=== PATIENT | male | born 1945 | race Caucasian/White ===

== ENCOUNTER 2020-04-09 07:56 | Inpatient (IN) | payer OTHER, MEDICARE ==
[~2020-04-09] VITALS: Ht 180.3 cm; Wt 100.8 kg
[~2020-04-09 07:56] MED LIST: ASPI81CH PO; Lisinopril2.5 MG PO; METO50ER PO; Norco 5-325 Ta1 EACH PO
[2020-04-09 08:05] LABS: Calcium, Ionized (POC) 1.15 mmol/L (1.10-1.46); Chloride (POC) 103 mmol/L (98-108); Creatinine (POC) 1.2 mg/dL (0.8-1.3); Glucose (ISTAT POC) 143 mg/dL (70-99); Hemoglobin (POC) 15.6 g/dL (13.5-17.5); Potassium (POC) 4.1 mmol/L (3.5-5.5); Sodium (POC) 136 mmol/L (135-148); Total CO2 (POC) 23 mmol/L (21-32)
[2020-04-09 08:16] LABS: Hematocrit 46.5 % (37.0-53.0); Hemoglobin 15.9 g/dL (13.5-17.5); Mean Corpuscular HGB 34.3 pg (26.0-34.0); Mean Corpuscular HGB Conc 34.2 g/dL (31.5-36.5); Mean Corpuscular Volume 100 fL (80-100); Mean Platelet Volume 10.7 fL (9.1-12.4); Platelet Count 168 K/mm3 (150-400); RDW Standard Deviation 48.2 fL (35.1-46.3); Red Blood Cell Count 4.64 M/mm3 (4.30-5.90); White Blood Cell Count 7.95 K/mm3 (4.00-11.30)
[2020-04-09 08:30] LABS: International Normalized Ratio 1.02; Prothrombin Time Results 10.9 Sec (9.7-11.5)
[2020-04-09 08:38] LABS: Anion Gap 5 mmol/L (6-16); Blood Urea Nitrogen 26 mg/dL (8-24); Bun/Creatinine Ratio 22.2 (12.0-20.0); CO2, Blood 26 mmol/L (21-32); CPK Creatine Kinase 419 U/L (39-308); Chloride, Blood 105 mmol/L (98-108); Cholesterol 156 mg/dL (50-200); Creatine Kinase MB 16.4 ng/mL (0.0-3.6); Creatine Kinase MB Index 3.9 (0.0-4.0); Creatinine, Blood 1.17 mg/dL (0.60-1.20); Glomerular Filtration Rate >60 (60-); Glucose, Blood 142 mg/dL (70-99); HDL Cholesterol 31 mg/dL (>39); LDL/HDL RATIO 3.4; Low Density Lipoprotein Chol 104 mg/dL (0-110); Magnesium, Blood 2.2 mg/dL (1.6-2.4); Potassium, Blood 4.2 mmol/L (3.5-5.5); Sodium, Blood 136 mmol/L (136-145); Triglycerides 103 mg/dL (30-160); Very Low Density Lipoprot Chol 20 mg/dL (6-32)
--- NOTE | 2020-04-09 12:40 | NUR ---
ARRIVAL TO ICU AT 1111 FROM DIRECTOR OF CLINICAL SERVICES. REPORT FROM CARLOS BELLE. RIGHT RADIAL ACCESS c TR BAND IN PLACE c 12 ML OF AIR. SITE VERIFIED c CARLOS. THREE STENTS PLACED TO LAD, MID X2, PROX X1. PT ARRIVES A&OX 4. ANSWERS QUESTIONS APPROPRIATELY. DENIES CHEST PAIN OR OTHER SYMPTOMS. REPORTS FEELING OF "INDIGESTION" MONDAY, RELIEVED c OTC MEDS. PT HAS HX OF SVT, REPORTS EPISODE THIS AM, TYPICALLY RESOLVES c VAGEL MANEUVERS. STATES THIS AM CONTINUED TO FEEL POORLY. LUNGS CLEAR, O2 SATS >94% ON RA. SPEAKING IN FULL SENTANCES. PT P/W/D. SR c RATE 90'S. BP STABLE. PT STANDS AT BEDSIDE TO USE URINAL, TACHYPNEIC c EXERTION, DENIES SOB. EKG DONE, ECHO IN PROGRESS, PLAN TO TAKE PT BACK TO DIRECTOR OF CLINICAL SERVICES SAT FOR ADDITIONAL STENTS. WILL CONTINUE TO MONITOR.
--- NOTE | 2020-04-09 13:32 | NUR ---
eCHOCARDIOGRAM USING 0.50ML OF dEFINITY CONTRAST PERFORMED.
--- NOTE | 2020-04-09 16:13 | NUR ---
Patient is sitting up in bed and alert. Patient tells me about his medical history up to present. Patient gets tearful in talking about a recent lay-off that also involves his housing. Patient talks about his family, his career and his pro. I listen empathically, normalize patient's experience and provide companionship and prayer. Patient responds well and shows signs of an elevated mood. Patient voices appreciation for the visit.
--- NOTE | 2020-04-09 17:21 | NUR ---
SHIFT SUMMARY ASSESSMENT UNCHANGED THIS SHIFT. PT DENIES CHEST PAIN OR OTHER SYMPTOMS. TR BAND DEFLATED AND REMOVED AT 1604. TEGADERM AND ARM BOARD IN PLACE. NO BLEEDING OR HEMATOMA NOTED. DENIES NUMBNESS OR TINGLING TO RIGHT EXTREMITY. HEPARIN STARTED POST ECHO FOR LV THROMBUS, INFUSING AT 15 UNITS/KG/HR. VSS. WILL CONTINUE TO MONITOR UNTIL REPORT TO ONCOMING NURSE.
--- NOTE | 2020-04-09 20:00 | NUR ---
PT RESTING IN BED. DENIES PAIN, CP, N/V AND DIZZINESS. GETS SOB WITH EXERTION BUT PT SAYS THIS IS BASELINE AND SPO2 NEVER DROPS. R RADIAL ACCESS SITE WITH CLEAR OCCLUSIVE DRESSING OVER IT. SITE IS STABLE. ARM BOARD IN PLACE. NO SIGN OF DISTRESS. CALL LIGHT IN REACH.
[2020-04-10 03:44] LABS: BASOPHILS ABSOLUTE AUTO 0.05 K/mm3 (0.00-0.23); BASOPHILS PERCENT AUTO 1 % (0-2); EOSINOPHILS ABSOLUTE AUTO 0.15 K/mm3 (0.00-0.68); EOSINOPHILS PERCENT AUTO 2 % (0-6); Hematocrit 39.7 % (37.0-53.0); Hemoglobin 13.7 g/dL (13.5-17.5); IMMATURE GRAN ABSOLUTE AUTO 0.06 K/mm3 (0.00-0.10); IMMATURE GRAN PERCENT AUTO 1 % (0-1); LYMPHOCYTES ABSOLUTE AUTO 1.33 K/mm3 (0.84-5.20); LYMPHOCYTES PERCENT AUTO 14 % (21-46); MONOCYTES ABSOLUTE AUTO 1.28 K/mm3 (0.16-1.47); MONOCYTES PERCENT AUTO 14 % (4-13); Mean Corpuscular HGB 34.3 pg (26.0-34.0); Mean Corpuscular HGB Conc 34.5 g/dL (31.5-36.5); Mean Corpuscular Volume 99 fL (80-100); Mean Platelet Volume 10.7 fL (9.1-12.4); NEUTROPHILS ABSOLUTE AUTO 6.34 K/mm3 (1.96-9.15); NEUTROPHILS PERCENT AUTO 69 % (41-73); Platelet Count 141 K/mm3 (150-400); RDW Coefficient Variation 12.8 % (11.7-14.2); RDW Standard Deviation 47.2 fL (35.1-46.3); White Blood Cell Count 9.21 K/mm3 (4.00-11.30)
[2020-04-10 04:03] LABS: Alanine Aminotransfer (ALT/SGP 172 U/L (12-78); Albumin, Blood 2.4 g/dL (3.4-5.0); Albumin/Globulin Ratio 0.6 (0.8-1.8); Alk Phos 42 U/L (50-136); Anion Gap 5 mmol/L (6-16); Aspartate Aminotrans (AST/SGOT 121 U/L (12-37); Bilirubin, Total 0.6 mg/dL (0.1-1.0); Blood Urea Nitrogen 18 mg/dL (8-24); Bun/Creatinine Ratio 17.6 (12.0-20.0); CHOL/HDL RATIO 4.8; CO2, Blood 25 mmol/L (21-32); Calcium, Blood 7.9 mg/dL (8.5-10.1); Chloride, Blood 105 mmol/L (98-108); Cholesterol 124 mg/dL (50-200); Creatinine, Blood 1.02 mg/dL (0.60-1.20); Globulin, Blood 3.8 g/dL (2.2-4.0); Glomerular Filtration Rate >60 (60-); Glucose, Blood 108 mg/dL (70-99); HDL Cholesterol 26 mg/dL (>39); Low Density Lipoprotein Chol 78 mg/dL (0-110); Sodium, Blood 135 mmol/L (136-145); Total Protein, Blood 6.2 g/dL (6.4-8.2); Triglycerides 98 mg/dL (30-160); Very Low Density Lipoprot Chol 19 mg/dL (6-32)
--- NOTE | 2020-04-10 06:18 | NUR ---
SUMMARY PT REMAINS ON HEPARIN GTT PER PHARMACY. R RADIAL ACCESS SITE STABLE WITH CLEAR OCCLUSIVE DRESSING IN PLACE. PT IS UP TO CHAIR THIS AM. DENIES PAIN, N/V, AND DIZZINESS. GETS SOB WITH EXERTION BUT SPO2 DOESN'T DROP. NO SIGN OF DISTRESS THIS AM. NO ACUTE EVENTS DURING THE NIGHT.
--- NOTE | 2020-04-10 13:41 | NUR ---
PT ARRIVED TO PCU 4 VIA WHEELCHAIR FROM ICU, REPORT WAS GIVEN BY RACHEL BELLE, PT HE IS A/OX3, PLEASANT AND COOPERATIVE WITH CARE, FOLLOWS COMMANDS WELL, DENIES PAIN AT THIS TIME. CURRENTLY ON A HEPERIN GTT. INSTRUCTED HIM TO CALL FOR ANY NEEDS OR CHANGES. CALL LIGHT IN REACH.
--- NOTE | 2020-04-10 14:30 | NUR ---
TRANSFER OF CARE REPORT CALLED TO GUME DUNAWAY RN ON PCU. HEPARING GTT CONTINUE TO INFUSES AT 18UNITS PER PHARMACY DOSING. BELONGINGS GATHERED AND TRANSFERED WITH PT. PT ESCORTED TO PCU 4 VIA WHEELCHAIR BY RN.
--- NOTE | 2020-04-10 15:47 | NUR ---
PT GOT UP TO THE BR, WHEN HE GOT BACK TO THE BED HE REPORTS 2-[address] NOLASCO WAS NOTIFIED, HE SAID TO JUST KEEP DOING WHAT WERE DOING. V.S. STABLE. STATES HE'S OK, PAIN DOWN TO A 2. CALL LIGHT IN REACH.
--- NOTE | 2020-04-10 19:15 | NUR ---
PT BECAME SOB, ASKED HIM TO STAY IN BED, DR. NOLASCO CAME TO SEE HIM, PUT HIM ON TYLENOL, WILL DO AN ANGIO IN AM, PLACED HIM ON 2 LITERS O2 FOR COMFORT, RESTING QUIELTY, REPORTS PAIN CAME DOWN TO A 2 FROM A 4, AND IS ABLE TO REST. NO FURTHER COMPLAINTS. CALL LIGHT IN REACH.
--- NOTE | 2020-04-10 19:55 | NUR ---
ASSUMED CARE Report recieved from BARBRA Booth and care assumed at 1900. Pt laying in bed, reporting chest pain 2/10 that is worsened with inspiration. heprin gtt infusing at 19u/kg/hr at shift change. Pt is alert and oriented, VS show SBP 91, pt not dizzy or lightheaded, mentation intact, conversing appropriately. Will continue to monitor BP closely this shift. community service manager aware of BP. No BP medications ordered or given this shift. R Radial access site covered with tegaderm, prexisting marked outline for hematoma, no change. arm board in place and pt compliant with r arm restriction. See shift assessment for detailed systems assessment.
[2020-04-11 01:02] LABS: BASOPHILS ABSOLUTE AUTO 0.03 K/mm3 (0.00-0.23); BASOPHILS PERCENT AUTO 0 % (0-2); EOSINOPHILS ABSOLUTE AUTO 0.04 K/mm3 (0.00-0.68); EOSINOPHILS PERCENT AUTO 0 % (0-6); Hematocrit 36.9 % (37.0-53.0); IMMATURE GRAN ABSOLUTE AUTO 0.07 K/mm3 (0.00-0.10); IMMATURE GRAN PERCENT AUTO 1 % (0-1); LYMPHOCYTES PERCENT AUTO 7 % (21-46); MONOCYTES ABSOLUTE AUTO 1.34 K/mm3 (0.16-1.47); MONOCYTES PERCENT AUTO 10 % (4-13); Mean Corpuscular HGB 34.4 pg (26.0-34.0); Mean Corpuscular HGB Conc 35.2 g/dL (31.5-36.5); Mean Corpuscular Volume 98 fL (80-100); Mean Platelet Volume 10.3 fL (9.1-12.4); NEUTROPHILS PERCENT AUTO 82 % (41-73); Platelet Count 165 K/mm3 (150-400); RDW Coefficient Variation 12.7 % (11.7-14.2); RDW Standard Deviation 45.5 fL (35.1-46.3); Red Blood Cell Count 3.78 M/mm3 (4.30-5.90); White Blood Cell Count 13.38 K/mm3 (4.00-11.30)
[2020-04-11 01:18] LABS: Bun/Creatinine Ratio 14.4 (12.0-20.0); Calcium, Blood 7.8 mg/dL (8.5-10.1); Creatinine, Blood 1.46 mg/dL (0.60-1.20); Potassium, Blood 4.3 mmol/L (3.5-5.5)
--- NOTE | 2020-04-11 06:28 | NUR ---
Shift Summary Pt with mild hypotension this shift, MAP remains >65. service desk technician aware of BP. Pt with no changes to mentation, denies dizziness or lightheaded. No changes to HR or rhythm. Pt complaining of consistant CP of 2/10, worsens with inspiration. Tylenol given q6 which is effective for pt. Pt able to express needs with call light, able to take all medications whole with water. Heprin gtt infusing at 20 u/kg/hr per orders. R radial access site unchanged from initial assessment. NPO since midnight. Plan for second angiogram today. pt aware of plan. no acute changes from initial shift assessment. No acute concerns to note. Will continue to monitor.
--- NOTE | 2020-04-11 07:41 | NUR ---
The pt has been having blood pressures lower than 90 mmHg systolic overnight. This morning his blood pressure remains low. His creatinine is noted to be greater than 1.0. The pt appears to be asymptomatic, talking pleasantly in the room. Dr. Ling was called, and notified of the RNs concern. Angiogram to be cancelled this morning and the doctor will be in to see the pt soon. Nursing photographic laboratory supervisor notified.
--- NOTE | 2020-04-11 08:01 | NUR ---
pt laying in bed awake a/ox3, pleasant and cooperative with care, follows commands well, denies any complaints of pain, sob or dizziness this am, reports he slept well last night and is comfortable, lungs are clear t/o, resp even and unlabored, no cough noted, hrr, tele in place running sr per monitor, see strip, no edema noted, iv to r and l ac's, both are patent, heperin infusing in right side as ordered, btx4, abd flat soft nontender, voids without diff, skin c/w/d, maew, helen, call light in reach. b/p in the 's which has been all night, call to Dr. Covarrubias to notify him of this, and labs. angio is cancelled for today. will hold b/p meds.
--- NOTE | 2020-04-11 11:58 | NUR ---
PT B/P OVER 100 SYSTOLIC, METOPROLOL GIVEN DR. NOLASCO INSTRUCTED, PT DOING WELL, NO COMPLAINTS, DID NOT WANT TO EAT MUCH OF LUNCH, STATES HE'S NOT HUNGRY, BUT FEELING BETTER OVERAL. CALL LIGHT IN REACH.
--- NOTE | 2020-04-11 19:31 | NUR ---
PT HAS HAD AN UNEVENTFUL DAY. NO ACUTE CHANGES THIS SHIFT. B/P IS WNL SINCE FLUIDS WERE STARTED. NO CHEST PAIN ALL DAY. BREATHING IS UNLABORED. CALL LIGHT IN REACH.
--- NOTE | 2020-04-11 22:46 | NUR ---
CARE ASSUMED REPORT RECEIVED, CARE ASSUMED AT 1900 FROM BARBRA AMEZQUITA. PT ALERT, ORIENTED. DENIES PAIN OR DISCOMFORT. SOB WITH USE OF URINAL AT BEDSIDE. HEPARIN GTT INFUSING PER ORDERS. PT DENIES CHEST PAIN. PT AGREEABLE TO CALL FOR NEEDS, CALL LIGHT IN REACH.
[2020-04-12 04:17] LABS: Anion Gap 8 mmol/L (6-16); Blood Urea Nitrogen 19 mg/dL (8-24); Bun/Creatinine Ratio 16.5 (12.0-20.0); CO2, Blood 23 mmol/L (21-32); Calcium, Blood 7.8 mg/dL (8.5-10.1); Chloride, Blood 105 mmol/L (98-108); Creatinine, Blood 1.15 mg/dL (0.60-1.20); Glomerular Filtration Rate >60 (60-); Glucose, Blood 103 mg/dL (70-99); Potassium, Blood 3.8 mmol/L (3.5-5.5); Sodium, Blood 136 mmol/L (136-145)
--- NOTE | 2020-04-12 06:20 | NUR ---
SUMMARY VITALS STABLE THROUGHOUT SHIFT. PT HAS DENIED CHEST PAIN. CONTINUES TO BE SHORT OF BREATH WITH EXERTION. INSISTENT ON STANDING UP TO USE URINAL REGARDLESS OF EDUCATION. HEPARIN GTT AND FLUIDS CONTINUE PER ORDERS. GOOD URINE OUTPUT. KIDNEY FUNCTION IMPROVING ON LABS. NPO SINCE MIDNIGHT. PT HOPEFUL TO GO TO MANAGEMENT AND BUDGET ANALYST TODAY. PT CALLING APPROPRIATELY FOR NEEDS THROUGHOUT SHIFT.
--- NOTE | 2020-04-12 09:56 | NUR ---
HEPARIN GTT TO CONT AT SAME RATE
--- NOTE | 2020-04-12 12:25 | NUR ---
pt arrived back to room pcu 4 from geochemical laboratory technician pt is s/p 1 stent placement via r wrist to central artery pt stated he has cp 11/29 at this time with sob pt has band on the wrist no hematoma noted will cont to monitor
--- NOTE | 2020-04-12 12:39 | NUR ---
pt eating lunch lab at bedside
--- NOTE | 2020-04-12 12:52 | NUR ---
pt done eating lunch
--- NOTE | 2020-04-12 13:00 | NUR ---
dr landa by to see pt plan for poss discharge dina
--- NOTE | 2020-04-12 13:42 | NUR ---
talked with pharmacy re ptt result to hold heparin gtt until 1440 then restart at same rate 35.2 ml/hr
--- NOTE | 2020-04-12 14:40 | NUR ---
restarted heprin gtt at 35.2 mlhr also started to release the air in band on the wrist by 2 ml
--- NOTE | 2020-04-12 16:06 | NUR ---
pt watching tv lab at bedside for pt/inr
[2020-04-12 16:28] LABS: International Normalized Ratio 1.16; Prothrombin Time Results 12.3 Sec (9.7-11.5)
--- NOTE | 2020-04-12 17:28 | NUR ---
removed wrist band dressing placed no drainage no hematoma noted pt to start on 5 mg po coumadin
--- NOTE | 2020-04-12 20:23 | NUR ---
ASSUMED CARE Report recieved from BARBRA Stahl and care assumed at 1900. clinical applications specialist Zheng Guerrero also caring for pt under supervision of this RN. VSS, SBP 97 at time of arrival. Heprin gtt infusing at 35.2 ml/hr and 20 u/kg/hr; rate verified with offgoing RN. IVfluids infusing at 75 mls/hr at time of assumption of care. Pt breathing is even and unlabored, endorses a "1.5/10" for pain and comments "it's not really a pain but more of discomfort." No changes to telemetry. Pt is fully alert and oriented, endorses fatigue but remains alert during entire assessment and conversation. R radial access site visualized with offgoing RN and site is WNL. Tegaderm inplace and arm board. Pt verbalizes understanding of R arm restriction. No acute concerns to note at start of shift.
--- NOTE | 2020-04-12 21:37 | NUR ---
No rate change for heprin gtt per orders. maintaining rate at 20 u/kg/hr.
[2020-04-13 04:23] LABS: Anion Gap 9 mmol/L (6-16); Blood Urea Nitrogen 17 mg/dL (8-24); CO2, Blood 24 mmol/L (21-32); Calcium, Blood 7.9 mg/dL (8.5-10.1); Chloride, Blood 105 mmol/L (98-108); Creatinine, Blood 1.06 mg/dL (0.60-1.20); Glomerular Filtration Rate >60 (60-); Glucose, Blood 103 mg/dL (70-99); Potassium, Blood 3.6 mmol/L (3.5-5.5); Sodium, Blood 138 mmol/L (136-145)
[2020-04-13 04:24] LABS: International Normalized Ratio 1.11; Prothrombin Time Results 11.8 Sec (9.7-11.5)
--- NOTE | 2020-04-13 06:18 | NUR ---
SHIFT SUMMARY PT APPEARED COMFORTABLE THROUGHTOUT SHIFT. HIS VITAL SIGNS REMAINED STABLE, WITH NO OBVIOUS ABNORMAL DEVIATIONS. PT REPORTED IMPROVED CHEST PAIN FROM A 2 TO LESS THAN A 1, STATING "IT'S NOT A PAIN, JUST MORE OF AN ACHE." PT WAS EDUCATED ABOUT VASOSPASMS POST PCI AND EXPRESSED UNDERSTANDING. HEPARIN IS INFUSING AT 20 u/kg/hr AND NS AT 75 ML/HR, PER ORDERS. RIGHT RADIAL ACCESS SITE REMAINED WITHIN NORMAL LIMITS; DRESSING REMAINED CLEAN, DRY AND INTACT. PT WAS COOPERATIVE. NO CHANGES IN MENTATION WERE NOTED. HE DENIED SOB, DIZZINESS, VISION CHANGES, TINGLING/NUMBNESS, OR ABNORMAL BLEEDING. HE HAS BEEN PRODUCING URINE WITHOUT DIFFICULTY. NO ACUTE CHANGES FROM INITIAL ASSESSMENT. NO ACUTE CONCERNS AT THIS TIME.
--- NOTE | 2020-04-13 07:30 | NUR ---
AM ASSESSMENT: Pt resting in bed. States that he is having intermitant chest pain on the R side of his chest. Rates it a 1/10. Will treat with tylenol per orders. LS clear. HR reg. BT hyperactive. Pt on heprin gtt and IVF per orders. BP slightly hypotensive. Will monitor and reassess pain and BP. Denies other needs.
--- NOTE | 2020-04-13 11:32 | NUR ---
Report given to BARBRA Amin. Pt transfered via w/c to medical floor room 330. Care transfered. Stable at that time. Prior to transfer Pt was given verbal lovenox teaching with injection. Denied questions at that time.
--- NOTE | 2020-04-13 11:56 | NUR ---
PT TRANSFERED. PT ORIENTED TO ROOM. CALL LIGHT IN REACH. URINAL & WATER AT BEDSIDE. PT STATES NO FURTHER NEEDS AT THIS TIME.
--- NOTE | 2020-04-13 12:03 | NUR ---
Patient is sitting up in bed and alert. Patient tells me about his latest surgery, about his housing issues and the changes there and about his friends and how they are stepping up to help him. Patient is still tearful about being let go from his job. He explains that he is 75 yrs old and has never be fired from a job in his life. I listen empathically, explore sources of meaning and value and provide companionship and prayer. Patient responds well and shows signs of an elevated mood. I will continue to reamain available to patient and family.
--- NOTE | 2020-04-13 16:27 | NUR ---
SHIFT SUMMARY PT TRANSFERED FROM PCU EARLIER IN THE SHIFT. PT RESTING IN BED COMFORTABLY. DENIES PAIN AT THIS TIME. VSS. NO CHANGES IN ASSESSMENT AT THIS TIME. PT R WRIST PUNCTURE SITE INTACT. PT DENIES PAIN THIS AFTERNOON. WILL CONTINUE TO MONITOR UNTIL TURNOVER IS COMPLETE.
--- NOTE | 2020-04-14 02:58 | NUR ---
SHIFT SUMMARY PT CAME FROM PCU YESTERDAY POST STEMI. REMAINS ON MED TELE - SINUS RHYTHM. SLEEP STUDY IN PROGRESS, RESTING QUIETLY AT PRESENT BUT HAS BEEN AWAKE AT INTERVALS. NO NOTED S/S OF ACUTE PHYSICAL DISTRESS. CALL LIGHT IN REACH.
[2020-04-14 05:42] LABS: International Normalized Ratio 1.25; Prothrombin Time Results 13.2 Sec (9.7-11.5)
[2020-04-14 07:18] LABS: Anion Gap 9 mmol/L (6-16); Blood Urea Nitrogen 18 mg/dL (8-24); Bun/Creatinine Ratio 15.4 (12.0-20.0); CO2, Blood 25 mmol/L (21-32); Calcium, Blood 8.3 mg/dL (8.5-10.1); Chloride, Blood 103 mmol/L (98-108); Creatinine, Blood 1.17 mg/dL (0.60-1.20); Glomerular Filtration Rate >60 (60-); Glucose, Blood 94 mg/dL (70-99); Potassium, Blood 3.5 mmol/L (3.5-5.5); Sodium, Blood 137 mmol/L (136-145)
--- NOTE | 2020-04-14 11:36 | NUR ---
WARFARIN TABLETS. THIS RN WENT TO PULL NEEDED WARFARIN FOR PT AND COUNTED THE TABLETS, THEN INPUT THE COUNT IN THE PYXIS, THEN ONLY PULLED ONE TABLET OUT AND CLOSED THE DRAWER. PHARMACY NOTIFIED OF THIS ACTION. SECOND TAB NEEDED SENT STRAIGHT FROM PHARMACY. ASSEMBLER EQUIPMENT AWARE OF WHICH PYXIS THIS OCCURED IN TO FIX COUNT.
[2020-04-14] MEDS ORDERED: ASPI81CH PO (11:57)
[2020-04-14] MEDS ORDERED: ATOR40TA PO (11:57)
[2020-04-14] MEDS ORDERED: CLOP75 PO (11:58)
[2020-04-14] MEDS ORDERED: ENOXAPARIN100 MG/1 M SC (12:02)
[2020-04-14] MEDS ORDERED: FURO40 PO (12:02)
[2020-04-14] MEDS ORDERED: WARF10 PO (12:03)
--- NOTE | 2020-04-14 14:22 | NUR ---
PT DISCHARGED PT DISCHARGED IN STABLE CONDITION. PT EDUCATED ON DC INSTRUCTIONS, NEW MEDS, AND FOLLOW UP APPOINTMENTS. SCRIPT FOR BLOOD DRAW GIVEN TO PT. PT DENIED NEED FOR FURTHER INSTRUCTION AT THIS TIME. PT R RADIAL PUNCTURE SITE INTACT. PT EDUCATED ON LIGHT WEIGHT FOR 1 WEEK. NO OTHER ACUTE CHANGES IN ASSESSMENT AT THIS TIME. PT WHEELED OUT BY AIDE AND DRIVEN HOME BY .
== END 2020-04-14 14:15 | disposition home or self-care (01) | DRG 246 ==
LOC: ER 07:56 → PCU 08:10 → ICUE 08:10 → PCU 04-10 14:39 → MEDS 04-13 11:18 → ENPENDDIS 04-14 11:00 → MEDS 04-14 14:15
PROVIDERS: Emergency Medicine; ADMIT Internal Medicine Interventional Cardiology
PROC: 4A023N7 Measurement of Cardiac Sampling and Pressure, Left Heart, Percutaneous Approach (ICD-10-PCS; principal; 2020-04-09)
PROC: 02C03ZZ Extirpation of Matter from Coronary Artery, One Artery, Percutaneous Approach (ICD-10-PCS; 2020-04-09)
PROC: 027036Z Dilation of Coronary Artery, One Artery with Three Drug-eluting Intraluminal Devices, Percutaneous Approach (ICD-10-PCS; 2020-04-09)
PROC: B2111ZZ Fluoroscopy of Multiple Coronary Arteries using Low Osmolar Contrast (ICD-10-PCS; 2020-04-09)
PROC: B241ZZ3 Ultrasonography of Multiple Coronary Arteries, Intravascular (ICD-10-PCS; 2020-04-09)
PROC: 027034Z Dilation of Coronary Artery, One Artery with Drug-eluting Intraluminal Device, Percutaneous Approach (ICD-10-PCS; 2020-04-12)
DX: I21.02 ST elevation (STEMI) myocardial infarction involving left anterior descending coronary artery (principal); I23.6 Thrombosis of atrium, auricular appendage, and ventricle as current complications following acute myocardial infarction; I24.1 Dressler's syndrome; I50.30 Unspecified diastolic (congestive) heart failure; Z87.891 Personal history of nicotine dependence; N14.1 Nephropathy induced by other drugs, medicaments and biological substances; I95.9 Hypotension, unspecified; I11.0 Hypertensive heart disease with heart failure; T50.8X5A Adverse effect of diagnostic agents, initial encounter; Y92.239 Unspecified place in hospital as the place of occurrence of the external cause
CPT/HCPCS: 36415; 76937; 80047; 80048; 80053; 80061; 82550; 82553; 83735; 84484; 85014; 85025; 85027; 85347; 85610; 85730; 86850; 86900; 86901; 92973; 92978; 93005; 93010; 93458; 94762; 99152; 99153; 99285-25; A9270-GY; C1725; C1753; C1757; C1769; C1874; C1887; C1894; C8929; C9600; C9606; J1644; J1650; J1940; J2250; J3010; J3246; J7030; Q9957; Q9967

== ENCOUNTER 2020-04-23 23:34 | Inpatient (IN) | payer OTHER, MEDICARE ==
[~2020-04-23] VITALS: Ht 180.3 cm; Wt 97.9 kg
[~2020-04-23 23:34] MED LIST changes: +ATOR40TA PO; +CLOP75 PO; +ENOXAPARIN100 MG/1 M SC; +FURO40 PO; +WARF10 PO
[2020-04-23 23:53] LABS: BASOPHILS ABSOLUTE AUTO 0.06 K/mm3 (0.00-0.23); BASOPHILS PERCENT AUTO 0 % (0-2); EOSINOPHILS ABSOLUTE AUTO 0.06 K/mm3 (0.00-0.68); EOSINOPHILS PERCENT AUTO 0 % (0-6); Hematocrit 43.3 % (37.0-53.0); Hemoglobin 14.6 g/dL (13.5-17.5); IMMATURE GRAN ABSOLUTE AUTO 0.12 K/mm3 (0.00-0.10); IMMATURE GRAN PERCENT AUTO 1 % (0-1); LYMPHOCYTES ABSOLUTE AUTO 1.66 K/mm3 (0.84-5.20); LYMPHOCYTES PERCENT AUTO 8 % (21-46); MONOCYTES ABSOLUTE AUTO 2.22 K/mm3 (0.16-1.47); MONOCYTES PERCENT AUTO 11 % (4-13); Mean Corpuscular HGB 34.6 pg (26.0-34.0); Mean Corpuscular HGB Conc 33.7 g/dL (31.5-36.5); Mean Platelet Volume 10.2 fL (9.1-12.4); NEUTROPHILS ABSOLUTE AUTO 16.56 K/mm3 (1.96-9.15); NEUTROPHILS PERCENT AUTO 80 % (41-73); Platelet Count 364 K/mm3 (150-400); RDW Coefficient Variation 13.8 % (11.7-14.2); RDW Standard Deviation 52.5 fL (35.1-46.3); Red Blood Cell Count 4.22 M/mm3 (4.30-5.90); White Blood Cell Count 20.68 K/mm3 (4.00-11.30)
[2020-04-23 23:54] LABS: Mean Corpuscular Volume 103 fL (80-100)
[2020-04-24 00:14] LABS: Albumin, Blood 2.9 g/dL (3.4-5.0); Albumin/Globulin Ratio 0.6 (0.8-1.8); Bilirubin, Total 1.1 mg/dL (0.1-1.0); Bun/Creatinine Ratio 34.1 (12.0-20.0); Calcium, Blood 8.6 mg/dL (8.5-10.1); Creatinine, Blood 1.64 mg/dL (0.60-1.20); Globulin, Blood 4.5 g/dL (2.2-4.0); Potassium, Blood 4.4 mmol/L (3.5-5.5); Total Protein, Blood 7.4 g/dL (6.4-8.2); Troponin I 0.077 ng/mL (0.000-0.040)
[2020-04-24 02:10] LABS: International Normalized Ratio 2.86; Prothrombin Time Results 28.8 Sec (9.7-11.5)
--- NOTE | 2020-04-24 02:27 | NUR ---
REPORT RECIEVED FROM BARBRA CHRIS. AWAITING PT ARRIVAL TO PCU 4 AT THIS TIME
[2020-04-24 06:12] LABS: BASOPHILS ABSOLUTE AUTO 0.05 K/mm3 (0.00-0.23); BASOPHILS PERCENT AUTO 0 % (0-2); EOSINOPHILS ABSOLUTE AUTO 0.05 K/mm3 (0.00-0.68); EOSINOPHILS PERCENT AUTO 0 % (0-6); Hematocrit 40.5 % (37.0-53.0); Hemoglobin 13.5 g/dL (13.5-17.5); IMMATURE GRAN PERCENT AUTO 1 % (0-1); LYMPHOCYTES ABSOLUTE AUTO 1.28 K/mm3 (0.84-5.20); LYMPHOCYTES PERCENT AUTO 9 % (21-46); MONOCYTES ABSOLUTE AUTO 1.47 K/mm3 (0.16-1.47); MONOCYTES PERCENT AUTO 10 % (4-13); Mean Corpuscular HGB Conc 33.3 g/dL (31.5-36.5); Mean Corpuscular Volume 102 fL (80-100); Mean Platelet Volume 10.2 fL (9.1-12.4); NEUTROPHILS ABSOLUTE AUTO 11.32 K/mm3 (1.96-9.15); NEUTROPHILS PERCENT AUTO 79 % (41-73); Platelet Count 234 K/mm3 (150-400); RDW Coefficient Variation 13.8 % (11.7-14.2); RDW Standard Deviation 52.2 fL (35.1-46.3); Red Blood Cell Count 3.97 M/mm3 (4.30-5.90); White Blood Cell Count 14.27 K/mm3 (4.00-11.30)
[2020-04-24 06:34] LABS: Bun/Creatinine Ratio 36.8 (12.0-20.0); Calcium, Blood 8.1 mg/dL (8.5-10.1); Creatinine, Blood 1.55 mg/dL (0.60-1.20); Potassium, Blood 4.7 mmol/L (3.5-5.5); Troponin I 0.076 ng/mL (0.000-0.040)
[2020-04-24 06:43] LABS: International Normalized Ratio 3.08; Prothrombin Time Results 30.9 Sec (9.7-11.5)
[2020-04-24 07:15] LABS: Adenovirus Not Detected (NOT DETECT); Bordetella pertussis Not Detected (NOT DETECT); Chlamydophila pneumoniae Not Detected (NOT DETECT); Coronavirus 229E Not Detected (NOT DETECT); Coronavirus HKU1 Not Detected (NOT DETECT); Coronavirus NL63 Not Detected (NOT DETECT); Coronavirus OC43 Not Detected (NOT DETECT); Human Metapneumovirus Not Detected (NOT DETECT); Human Rhinovirus/Enterovirus Not Detected (NOT DETECT); Influenza A/2009-H1 Not Detected (NOT DETECT); Influenza A/H1 Not Detected (NOT DETECT); Influenza A/H3 Not Detected (NOT DETECT); Influenza B Not Detected (NOT DETECT); Mycoplasma pneumoniae Not Detected (NOT DETECT); Parainfluenza Virus 1 Not Detected (NOT DETECT); Parainfluenza Virus 2 Not Detected (NOT DETECT); Parainfluenza Virus 3 Not Detected (NOT DETECT); Parainfluenza Virus 4 Not Detected (NOT DETECT); Respiratory Syncytial Virus Not Detected (NOT DETECT)
--- NOTE | 2020-04-24 07:42 | NUR ---
SHIFT SUMMARY Pt admitted to PCU this shift for PNA. He was recently discharged from [facility] on 04/14 for STEMI with stents. currently on 2L NC, VSS. Total of 1.5L LR fluid bolus given per orders. IVF infusing 100ml/hr at this time. Pt is fully alert and oriented x4; able to provide all information for admission and conversing appropriately with staff. Makes needs known with call light. See admission assessment for detailed systems assessment - no acute changes. No active CP, no increased SOB, pt able to speak in full sentences without dyspnea. Handoff given to day RN who assumes care.
--- NOTE | 2020-04-24 08:40 | NUR ---
PT SITTING UP IN BED WATCHING TV. A&Ox4. CRHISTY. LUNG SOUNDS ARE DIMINISHED AND COARSE ON THE LEFT SIDE. RIGHT SIDED LUNG SOUNDS ARE CLEAR AND SLIGHTLY DIMINISHED IN THE BASES. DENIES SOB AT THIS TIME. PT ON TELE. SINUS RHYTHMN AT A RATE OF 95. REPORTS L SIDED CP WITH MOVEMENT AND WHEN TAKING A DEEP BREATH. PULSES STRONG. BOWEL TONES AUSCULTATED IN ALL 4 QUADRANTS. DENIES ABD PN. SKIN IS WARM AND PINK. IV IN RAC PATENT AND INFUSING CURRENTLY. PT NOW EATING LUNCH. BED IN LOW POSITION, RAILS UP, AND CALL LIGHT W/IN REACH.
--- NOTE | 2020-04-24 13:40 | NUR ---
REPORT GIVEN TO BREN BELLE. PT INFORMED OF TRANSFER. PT TO MEDICAL FLOOR VIA HOSPITAL BED BY PCT.
--- NOTE | 2020-04-24 15:12 | NUR ---
Per RN request, I met with Mr. Cadet to offer gentle savings counselor. He was tearful and extremely worried about recent life changes. He welcomed spiritual direction and prayer. He appeared calm by conclusion of visit. Counting Machine Operator services will remain available.
--- NOTE | 2020-04-24 19:29 | NUR ---
resting, lr infusing with no s/sx of infection or infiltration, call light in reach, breathing easy, o2 level above 90, no complaint of sob except if he moved arms, bsr shared with pt and nurse
--- NOTE | 2020-04-25 04:37 | NUR ---
SHIFT SUMMARY PT HAS HAD NO ACUTE CHANGES THIS SHIFT, SLEPT T/O MOST OF NIGHT, MEDICATED 1X FOR PLEURITIC CP (L SIDE), NO OTHER C/O ANY KIND, PT SLEEPING AT THIS TIME, CALL LIGHT IN REACH, WILL CONT TO MONITOR UNTIL REPORT GIVEN TO DAY RN.
[2020-04-25 05:18] LABS: BASOPHILS ABSOLUTE AUTO 0.04 K/mm3 (0.00-0.23); BASOPHILS PERCENT AUTO 0 % (0-2); EOSINOPHILS ABSOLUTE AUTO 0.09 K/mm3 (0.00-0.68); EOSINOPHILS PERCENT AUTO 1 % (0-6); Hematocrit 37.4 % (37.0-53.0); Hemoglobin 12.5 g/dL (13.5-17.5); IMMATURE GRAN ABSOLUTE AUTO 0.06 K/mm3 (0.00-0.10); IMMATURE GRAN PERCENT AUTO 1 % (0-1); LYMPHOCYTES ABSOLUTE AUTO 0.86 K/mm3 (0.84-5.20); LYMPHOCYTES PERCENT AUTO 8 % (21-46); MONOCYTES ABSOLUTE AUTO 1.18 K/mm3 (0.16-1.47); MONOCYTES PERCENT AUTO 11 % (4-13); Mean Corpuscular HGB 33.8 pg (26.0-34.0); Mean Corpuscular HGB Conc 33.4 g/dL (31.5-36.5); Mean Corpuscular Volume 101 fL (80-100); Mean Platelet Volume 10.4 fL (9.1-12.4); NEUTROPHILS PERCENT AUTO 80 % (41-73); Platelet Count 213 K/mm3 (150-400); RDW Coefficient Variation 13.8 % (11.7-14.2); RDW Standard Deviation 51.4 fL (35.1-46.3); White Blood Cell Count 11.23 K/mm3 (4.00-11.30)
[2020-04-25 05:32] LABS: International Normalized Ratio 3.75; Prothrombin Time Results 37.2 Sec (9.7-11.5)
[2020-04-25 05:52] LABS: Anion Gap 6 mmol/L (6-16); Blood Urea Nitrogen 34 mg/dL (8-24); Bun/Creatinine Ratio 28.1 (12.0-20.0); CO2, Blood 25 mmol/L (21-32); Calcium, Blood 8.1 mg/dL (8.5-10.1); Chloride, Blood 106 mmol/L (98-108); Creatinine, Blood 1.21 mg/dL (0.60-1.20); Glomerular Filtration Rate >60 (60-); Glucose, Blood 108 mg/dL (70-99); Potassium, Blood 4.5 mmol/L (3.5-5.5); Sodium, Blood 137 mmol/L (136-145)
--- NOTE | 2020-04-25 18:26 | NUR ---
SHIFT SUMMARY COVID-19 TEST RETURNED NOT DETECTED. PT DID HAVE CHEST PAIN THIS MORNING THAT RESOLVED WITH TYLENOL. INSTRUCTED ON USE OF FLUTTER VALVE AND IS. HAS BEEN SEEN USING SEVERAL TIMES AND REPORTS HIS CHEST PAIN HAS ALSO IMPROVED SINCE HE STARTED USING THE RESPIRATORY TOOLS. REPORTS HE HAS A POOR APPETITE BUT STATED HE DID EAT MORE FOR DINNER.
--- NOTE | 2020-04-26 04:28 | NUR ---
SHIFT SUMMARY PT HAS HAD NO ACUTE CHANGES THIS SHIFT, NO C/O OF ANY KIND, REPORTS CP HAS IMPROVED & PT HAS BEEN USING FLUTTER & IS THIS EVENING, PT SLEPT T/O THE NIGHT & AT THIS TIME, CALL LIGHT IN REACH, WILL CONT TO MONITOR UNTIL REPORT GIVEN TO DAY RN.
[2020-04-26 04:46] LABS: BASOPHILS ABSOLUTE AUTO 0.04 K/mm3 (0.00-0.23); BASOPHILS PERCENT AUTO 0 % (0-2); EOSINOPHILS ABSOLUTE AUTO 0.12 K/mm3 (0.00-0.68); EOSINOPHILS PERCENT AUTO 1 % (0-6); Hematocrit 36.1 % (37.0-53.0); Hemoglobin 12.1 g/dL (13.5-17.5); IMMATURE GRAN ABSOLUTE AUTO 0.03 K/mm3 (0.00-0.10); IMMATURE GRAN PERCENT AUTO 0 % (0-1); LYMPHOCYTES ABSOLUTE AUTO 0.81 K/mm3 (0.84-5.20); LYMPHOCYTES PERCENT AUTO 9 % (21-46); MONOCYTES ABSOLUTE AUTO 1.02 K/mm3 (0.16-1.47); MONOCYTES PERCENT AUTO 11 % (4-13); Mean Corpuscular HGB 33.6 pg (26.0-34.0); Mean Corpuscular HGB Conc 33.5 g/dL (31.5-36.5); Mean Corpuscular Volume 100 fL (80-100); Mean Platelet Volume 10.1 fL (9.1-12.4); NEUTROPHILS ABSOLUTE AUTO 7.01 K/mm3 (1.96-9.15); NEUTROPHILS PERCENT AUTO 78 % (41-73); Platelet Count 199 K/mm3 (150-400); RDW Coefficient Variation 13.5 % (11.7-14.2); RDW Standard Deviation 49.7 fL (35.1-46.3); White Blood Cell Count 9.03 K/mm3 (4.00-11.30)
[2020-04-26 05:01] LABS: International Normalized Ratio 3.05; Prothrombin Time Results 30.6 Sec (9.7-11.5)
[2020-04-26 05:05] LABS: Anion Gap 5 mmol/L (6-16); Blood Urea Nitrogen 23 mg/dL (8-24); Bun/Creatinine Ratio 21.5 (12.0-20.0); CO2, Blood 24 mmol/L (21-32); Calcium, Blood 8.2 mg/dL (8.5-10.1); Chloride, Blood 108 mmol/L (98-108); Creatinine, Blood 1.07 mg/dL (0.60-1.20); Glomerular Filtration Rate >60 (60-); Glucose, Blood 92 mg/dL (70-99); Magnesium, Blood 2.5 mg/dL (1.6-2.4); Potassium, Blood 4.1 mmol/L (3.5-5.5); Sodium, Blood 137 mmol/L (136-145)
--- NOTE | 2020-04-26 18:18 | NUR ---
SHIFT SUMMARY A&OX4. PT IS SBA TO BATHROOM FOR BM AND USES URINAL AT BEDSIDE. PT DID NOT USE CALL LIGHT. PT DID NOT REPORT ANY EPSOIDS OF PAIN & DENIES N/V. PT DECLINED DINNER AND HAD AN ENSURE INSTEAD. PT HAS NONPRODUCTIVE COUGH. SPUTUM SAMPLE STILL NEEDED.
--- NOTE | 2020-04-27 04:56 | NUR ---
SHIFT SUMMARY PT HAS HAD NO ACUTE CHANGES THIS SHIFT, DR NOLASCO AT BEDSIDE @ 1999, NEW ORDERS REC, PT SLEPT T/O THE NIGHT, NO C/O ANY KIND, CALL LIGHT IN REACH, WILL CONT TO MONITOR UNTIL REPORT GIVEN TO DAY RN.
[2020-04-27 05:54] LABS: International Normalized Ratio 1.95; Prothrombin Time Results 20.1 Sec (9.7-11.5)
--- NOTE | 2020-04-27 15:46 | NUR ---
1545 REPORT GIVEN TO PATTI SNYDER RN AT [facility]. AWAITING TRANSPORT SOON.
--- NOTE | 2020-04-27 17:51 | NUR ---
SHIFT SUMMARY. 1555 PT ABIGAIL TRANSFERED TO [facility] VIA GURNEY TRANSPORT. PT BELONGS WITH PT, INCLUDING HEARING AIDS AND DENTURES. DENTURES DID BREAK TODAY PER PT, HE REPORTED THAT IT HAD CRACKED PREVIOUSLY. ECHO COMPLETED THIS AM. PT DENIES PAIN, SOB, N/V DURING SHIFT. NO NEW CHANGES OR CONCERNS.
== END 2020-04-27 15:55 | disposition short-term general hospital (02) | DRG 871 ==
LOC: ER 23:34 → PCU 04-24 00:50 → MEDS 04-24 14:00 → ENPENDDIS 04-27 12:47 → MEDS 04-27 15:55
PROVIDERS: Emergency Medicine; Internal Medicine; Pharmacist; ADMIT Family Medicine
DX: A41.9 Sepsis, unspecified organism (principal); I21.3 ST elevation (STEMI) myocardial infarction of unspecified site; J18.9 Pneumonia, unspecified organism; N17.9 Acute kidney failure, unspecified; E87.1 Hypo-osmolality and hyponatremia; I50.32 Chronic diastolic (congestive) heart failure; I23.6 Thrombosis of atrium, auricular appendage, and ventricle as current complications following acute myocardial infarction; Z87.891 Personal history of nicotine dependence; R65.20 Severe sepsis without septic shock; Z79.82 Long term (current) use of aspirin; Z79.01 Long term (current) use of anticoagulants; Z95.5 Presence of coronary angioplasty implant and graft; I25.10 Atherosclerotic heart disease of native coronary artery without angina pectoris; I95.9 Hypotension, unspecified; I11.0 Hypertensive heart disease with heart failure
CPT/HCPCS: 0099U; 36415; 71045; 71046; 80048; 80053; 83605; 83735; 84145; 84484; 85025; 85610; 85651; 86140; 93005; 93010; 93308; 93321; 96361; 96365; 96375; 99285-25; A9270; A9270-GY; C8929; J1885; J2543; J7030; J7050; J7120; Q9957; U0003

== ENCOUNTER 2020-12-10 21:57 | Emergency (ER) | payer OTHER, MEDICARE ==
[~2020-12-10] VITALS: Ht 177.8 cm; Wt 93.9 kg
== END 2020-12-10 22:35 | disposition home or self-care (01) ==
LOC: ER 21:57
DX: I47.1 Supraventricular tachycardia (principal); I10 Essential (primary) hypertension; I25.10 Atherosclerotic heart disease of native coronary artery without angina pectoris; Z79.82 Long term (current) use of aspirin; Z79.02 Long term (current) use of antithrombotics/antiplatelets; Z79.01 Long term (current) use of anticoagulants; Z79.899 Other long term (current) drug therapy; Z87.891 Personal history of nicotine dependence; Z95.5 Presence of coronary angioplasty implant and graft
CPT/HCPCS: 36415; 93005; 93010; 99284-25

== ENCOUNTER 2021-08-18 11:41 | Observation (INO) | payer OTHER ==
[~2021-08-18] VITALS: Ht 182.9 cm; Wt 86.2 kg
[2021-08-18 12:11] LABS: BASOPHILS ABSOLUTE AUTO 0.04 K/mm3 (0.00-0.23); BASOPHILS PERCENT AUTO 1 % (0-2); EOSINOPHILS ABSOLUTE AUTO 0.08 K/mm3 (0.00-0.68); EOSINOPHILS PERCENT AUTO 1 % (0-6); Hematocrit 43.7 % (37.0-53.0); Hemoglobin 15.2 g/dL (13.5-17.5); IMMATURE GRAN ABSOLUTE AUTO 0.02 K/mm3 (0.00-0.10); IMMATURE GRAN PERCENT AUTO 0 % (0-1); LYMPHOCYTES ABSOLUTE AUTO 1.98 K/mm3 (0.84-5.20); LYMPHOCYTES PERCENT AUTO 27 % (21-46); MONOCYTES ABSOLUTE AUTO 0.97 K/mm3 (0.16-1.47); MONOCYTES PERCENT AUTO 13 % (4-13); Mean Corpuscular HGB 34.5 pg (26.0-34.0); Mean Corpuscular HGB Conc 34.8 g/dL (31.5-36.5); Mean Corpuscular Volume 99 fL (80-100); Mean Platelet Volume 12.2 fL (9.1-12.4); NEUTROPHILS ABSOLUTE AUTO 4.13 K/mm3 (1.96-9.15); NEUTROPHILS PERCENT AUTO 57 % (41-73); Platelet Count 130 K/mm3 (150-400); RDW Coefficient Variation 12.8 % (11.7-14.2); Red Blood Cell Count 4.41 M/mm3 (4.30-5.90); White Blood Cell Count 7.22 K/mm3 (4.00-11.30)
[2021-08-18 12:31] LABS: Anion Gap 9 mmol/L (6-16); Blood Urea Nitrogen 19 mg/dL (8-24); Bun/Creatinine Ratio 17.3 (12.0-20.0); CO2, Blood 22 mmol/L (21-32); Calcium, Blood 8.6 mg/dL (8.5-10.1); Chloride, Blood 109 mmol/L (98-108); Glomerular Filtration Rate >60 (60-); Glucose, Blood 121 mg/dL (70-99); Potassium, Blood 3.3 mmol/L (3.5-5.5); Sodium, Blood 140 mmol/L (136-145); Troponin I <0.015 ng/mL (0.000-0.040)
[2021-08-18] MEDS ORDERED: COLCHICINE0.6 MG PO (13:24)
[2021-08-18] MEDS ORDERED: ENTRESTO 24 MG1 EACH PO (13:24)
[2021-08-18] MEDS ORDERED: OMEP20ER PO (13:25)
[2021-08-18] MEDS ORDERED: SPIR25 PO ×2 (13:27→18:02)
[2021-08-18] MEDS ORDERED: TRAM50 PO (13:27)
[2021-08-18 17:35] LABS: Creatine Kinase MB 16.2 ng/mL (0.0-3.6); Creatine Kinase MB Index 8.8 (0.0-4.0)
[2021-08-18] MEDS ORDERED: Vitamin D1000 UNI1 PO (18:02)
--- NOTE | 2021-08-19 06:10 | NUR ---
TREE SCOUT SUMMARY PATIENT IS AN ADMISSION OF THE SHIFT. ALERT AND ORIENTED.NO SKIN BRAEKDOWN. HE WAS ORIENTED TO THE UNIT ROUTINES. MADE COMFORTABLE. NO ADVERSE EVENT OVER THE NIGHT. WILL CONTINUE TO MONITOR PATIENT.
[2021-08-19 06:14] LABS: BASOPHILS ABSOLUTE AUTO 0.03 K/mm3 (0.00-0.23); BASOPHILS PERCENT AUTO 1 % (0-2); EOSINOPHILS ABSOLUTE AUTO 0.11 K/mm3 (0.00-0.68); EOSINOPHILS PERCENT AUTO 2 % (0-6); Hematocrit 39.4 % (37.0-53.0); Hemoglobin 13.6 g/dL (13.5-17.5); IMMATURE GRAN ABSOLUTE AUTO 0.01 K/mm3 (0.00-0.10); IMMATURE GRAN PERCENT AUTO 0 % (0-1); LYMPHOCYTES ABSOLUTE AUTO 1.36 K/mm3 (0.84-5.20); LYMPHOCYTES PERCENT AUTO 22 % (21-46); MONOCYTES ABSOLUTE AUTO 0.83 K/mm3 (0.16-1.47); MONOCYTES PERCENT AUTO 13 % (4-13); Mean Corpuscular HGB 35.4 pg (26.0-34.0); Mean Corpuscular HGB Conc 34.5 g/dL (31.5-36.5); Mean Corpuscular Volume 103 fL (80-100); Mean Platelet Volume 11.8 fL (9.1-12.4); NEUTROPHILS ABSOLUTE AUTO 3.96 K/mm3 (1.96-9.15); NEUTROPHILS PERCENT AUTO 63 % (41-73); Platelet Count 101 K/mm3 (150-400); RDW Coefficient Variation 13.1 % (11.7-14.2); RDW Standard Deviation 49.5 fL (35.1-46.3); Red Blood Cell Count 3.84 M/mm3 (4.30-5.90)
[2021-08-19 06:32] LABS: Anion Gap 5 mmol/L (6-16); Blood Urea Nitrogen 21 mg/dL (8-24); Bun/Creatinine Ratio 23.8 (12.0-20.0); CO2, Blood 24 mmol/L (21-32); Calcium, Blood 8.4 mg/dL (8.5-10.1); Chloride, Blood 114 mmol/L (98-108); Creatinine, Blood 0.88 mg/dL (0.60-1.20); Glomerular Filtration Rate >60 (60-); Glucose, Blood 86 mg/dL (70-99); Potassium, Blood 4.5 mmol/L (3.5-5.5); Sodium, Blood 143 mmol/L (136-145)
[2021-08-19] MEDS ORDERED: XARELTO20 MG PO (14:34)
--- NOTE | 2021-08-19 15:48 | NUR ---
DISCHARGE PATIENT TRANSPORTED VIA WHEELCHAIR TO PRIVATE VEHICLE. DISCHARGE INSTRUCTIONS EXPLAINED TO PATIENT. PATIENT STATED UNDERSTANDING. PACKET SENT WITH PATIENT. IV REMOVED WITHOUT DIFFICULTY. TELE REMOVED WITHOUT DIFFICULTY. MEDICATIONS FAXED TO PREFERRED PHARMACY. FOLLOW UPS SCHEDULED WITH PCP AND CARDIOLOGY.
== END 2021-08-19 15:46 | disposition home or self-care (01) ==
LOC: ER 11:41 → MEDS 11:42 → ER 15:02 → MEDS 21:29
PROVIDERS: Student in an Organized Health Care Education/Training Program; ADMIT Internal Medicine
DX: R07.89 Other chest pain (principal); I25.2 Old myocardial infarction; I25.10 Atherosclerotic heart disease of native coronary artery without angina pectoris; I47.1 Supraventricular tachycardia; E87.6 Hypokalemia; I11.0 Hypertensive heart disease with heart failure; I50.9 Heart failure, unspecified; R00.2 Palpitations; R79.89 Other specified abnormal findings of blood chemistry; R94.31 Abnormal electrocardiogram [ECG] [EKG]; E86.0 Dehydration; I48.92 Unspecified atrial flutter; Z95.818 Presence of other cardiac implants and grafts; Z87.891 Personal history of nicotine dependence; Z79.01 Long term (current) use of anticoagulants
CPT/HCPCS: 36415; 71045; 80048; 82550; 82553; 83605; 83735; 84484; 85025; 93005; 93010; 96372; 99285-25; A9270; C8923; J1650; J7030; Q9957

== ENCOUNTER → 2024-03-06 | Outpatient (CLI) | payer MEDICARE ==
[~2024-03-06] MED LIST changes: +COLCHICINE0.6 MG PO; +ENTRESTO 24 MG1 EACH PO; +OMEP20ER PO; +SPIR25 PO; +TRAM50 PO; +Vitamin D1000 UNI1 PO; +XARELTO20 MG PO
== END ==
LOC: LAB SHORT 12:24 → LAB 12:24
DX: D49.0 Neoplasm of unspecified behavior of digestive system (principal); L98.9 Disorder of the skin and subcutaneous tissue, unspecified
CPT/HCPCS: 88173

== ENCOUNTER 2025-11-03 09:30 | Emergency (ER) | payer OTHER ==
[~2025-11-03] VITALS: Ht 180.3 cm; Wt 83.9 kg
[2025-11-03 10:21] LABS: BASOPHILS ABSOLUTE AUTO 0.01 K/mm3 (0.00-0.23); BASOPHILS PERCENT AUTO 0 % (0-2); EOSINOPHILS ABSOLUTE AUTO 0.08 K/mm3 (0.00-0.68); EOSINOPHILS PERCENT AUTO 2 % (0-6); Hematocrit 35.7 % (37.0-53.0); Hemoglobin 12.4 g/dL (13.5-17.5); IMMATURE GRAN ABSOLUTE AUTO 0.02 K/mm3 (0.00-0.10); IMMATURE GRAN PERCENT AUTO 0 % (0-1); LYMPHOCYTES ABSOLUTE AUTO 0.43 K/mm3 (0.84-5.20); LYMPHOCYTES PERCENT AUTO 8 % (21-46); MONOCYTES ABSOLUTE AUTO 1.10 K/mm3 (0.16-1.47); MONOCYTES PERCENT AUTO 20 % (4-13); Mean Corpuscular HGB Conc 34.7 g/dL (31.5-36.5); Mean Corpuscular Volume 103 fL (80-100); NEUTROPHILS ABSOLUTE AUTO 3.81 K/mm3 (1.96-9.15); NEUTROPHILS PERCENT AUTO 70 % (41-73); NRBC ABSOLUTE 0.00 K/mm3 (0.00-0.02); NRBC Auto 0.0 /100 WBC (0.0-0.2); Platelet Count 71 K/mm3 (150-400); RDW Coefficient Variation 13.9 % (11.7-14.2); RDW Standard Deviation 53.0 fL (35.1-46.3)
[2025-11-03] MEDS ORDERED: LOSA25 PO (10:33)
[2025-11-03] MEDS ORDERED: COLCHICINE0.6 MG PO (10:33)
[2025-11-03] MEDS ORDERED: WARF4 PO (10:34)
[2025-11-03] MEDS ORDERED: EUTHYROX50 MCG PO (10:34)
[2025-11-03] MEDS ORDERED: Coumadin2 MG PO (10:35)
[2025-11-03 10:40] LABS: Alanine Aminotransfer (ALT/SGP 115.0 U/L (12-78); Albumin, Blood 2.9 g/dL (3.4-5.0); Albumin/Globulin Ratio 0.9 (0.8-1.8); Anion Gap 9.0 mmol/L (3-11); Aspartate Aminotrans (AST/SGOT 120.0 U/L (12-37); Bilirubin, Total 1.5 mg/dL (0.1-1.0); Blood Urea Nitrogen 31.0 mg/dL (8-24); CO2, Blood 23.0 mmol/L (21-32); Calcium, Blood 8.5 mg/dL (8.5-10.1); Chloride, Blood 108.0 mmol/L (98-108); Creatinine, Blood 1.12 mg/dL (0.60-1.20); Globulin, Blood 3.3 g/dL (2.2-4.0); Glucose, Blood 115.0 mg/dL (70-99); Potassium, Blood 4.1 mmol/L (3.5-5.5); Sodium, Blood 136.0 mmol/L (136-145); Total Protein, Blood 6.2 g/dL (6.4-8.2)
[2025-11-03 11:07] LABS: Source, Urine Voided
[2025-11-03 11:11] LABS: Bilirubin, Urine Neg (Neg); Color, Urine Yellow (P-Yellow); Glucose Qualitative, Urine Neg (Neg); Ketones, Urine Neg (Neg); Leukocyte Esterase, Urine 3+ (Neg); Protein, Urine 2+ (Neg); Specific Gravity, Urine 1.015 (1.003-1.022); Urobilinogen, Urine NORM (Normal)
[2025-11-03 11:26] LABS: White Blood Cells, Urine 50-100 /hpf (0-5)
[2025-11-03] MEDS ORDERED: CefTRIAXone Sodium 1,000 MG in NS 50 ML IV ONE (12:50)
[2025-11-03 13:15] VITALS: BP 107/62
[2025-11-03] MEDS ORDERED: CEPH500 PO (13:56)
== END 2025-11-03 14:24 | disposition home or self-care (01) ==
LOC: ER 09:30
PROVIDERS: Emergency Medicine
DX: N39.0 Urinary tract infection, site not specified (principal); I25.2 Old myocardial infarction; I25.10 Atherosclerotic heart disease of native coronary artery without angina pectoris; I10 Essential (primary) hypertension; Z79.899 Other long term (current) drug therapy; Z79.01 Long term (current) use of anticoagulants; Z87.891 Personal history of nicotine dependence
CPT/HCPCS: 51798; 80053; 81001; 85025; J0696